=== PATIENT | female | born 1975 | race Caucasian/White ===

== ENCOUNTER 2019-08-04 07:35 | Outpatient (CLI) | payer BC, MEDICAID | END 2019-08-04 23:59 | disposition home or self-care (01) | LOC: ROC 07:35 | PROVIDERS: ATTEND Radiology Radiation Oncology | DX: C53.8 Malignant neoplasm of overlapping sites of cervix uteri (principal); R97.1 Elevated cancer antigen 125 [CA 125]; R10.2 Pelvic and perineal pain | CPT/HCPCS: 99214; G0463 ==

== ENCOUNTER 2019-09-19 08:30 | Emergency (ER) | payer BC, MEDICAID ==
[~2019-09-19] VITALS: Ht 167.6 cm; Wt 104.8 kg
--- NOTE | 2019-09-19 08:54 | NUR ---
BROU[facility], WHERE PT WAS SUPPOSED TO RECIEVE HER 4TH CHEMO TX. DEHISSED SURGICAL SITE ABOVE POWER PORT WITH NOTED YELLOW PUS DRAINING FROM SITE THIS AM. ALSO C/O ABDOMINAL TENDERNESS, "PAIN IN MY ANKLES THAT GOES ALL THE WAY UP MY LEGS." PT RECLINED IN BED, RESPIRATIONS EVEN AND UNLABORED ON RA. NAD NOTED AT THIS TIME. MOTHER AT BEDSIDE. AWAITING ERMD EVAL.
--- NOTE | 2019-09-19 09:56 | NUR ---
PLAN FOR IV START WITH CERTIFIED SUBSTANCE ABUSE COUNSELOR AT BEDSIDE TO ARRANGE SINGLE NEEDLE STICK. PT DID NOT TOLERATE IV START WELL, BUT DENIES PAIN WITH FLUSHING. HOB TO LEVEL OF COMFORT. RESPIRATIONS EVEN AND UNLABORED ON RA. MOTHER AT BEDSIDE.
[2019-09-19] MEDS ORDERED: SODIUM CHLORIDE FLUSH 10ML SYR IVF ONE (10:00)
[2019-09-19] MEDS ORDERED: SODIUM CHLORIDE 0.9% 1,000ML IVBOLUS ONE (10:00)
[2019-09-19 10:27] LABS: BASOPHILS % (AUTO) 0 % (0-1); EOSINOPHILS % (AUTO) 0 % (1-7); LYMPHOCYTES % (AUTO) 4 % (22-44); MD NO; MEAN CORPUSCULAR HEMOGLOBIN 26.6 pg (27.0-34.8); MEAN CORPUSCULAR HGB CONC 31.9 g/dL (32.4-35.8); MEAN CORPUSCULAR VOLUME 83.3 fL (80-100); MEAN PLATELET VOLUME 8.7 fL (7.4-10.4); MONOCYTES % (AUTO) 3 % (2-9); NEUTROPHILS # (AUTO) 9.26 x10^3/uL (1.8-6.8); NEUTROPHILS % (AUTO) 93 % (42-75); PLATELET COUNT 250 x10^3/uL (130-400); RED BLOOD COUNT 4.32 x10^6/uL (3.82-5.3); RED CELL DISTRIBUTION WIDTH 19.1 % (9.6-15.2)
[2019-09-19] MEDS ORDERED: NEOSPORIN OINT. PKT 1 PACKET ONE (10:27)
[2019-09-19 10:36] LABS: ALBUMIN 3.3 g/dL (3.4-5.0); ANION GAP 8 mmol/L (5-15); CALCIUM 8.6 mg/dL (8.5-10.1); CHLORIDE 105 mmol/L (98-107)
[2019-09-19 10:40] LABS: ALANINE AMINOTRANSFERASE 68 U/L (12-78); ALKALINE PHOSPHATASE 78 U/L (45-117); BILIRUBIN,TOTAL 0.2 mg/dL (0.2-1.0); CREATININE 1.28 mg/dL (0.55-1.02); TOTAL PROTEIN 6.6 g/dL (6.4-8.2)
--- NOTE | 2019-09-19 10:48 | NUR ---
PT RECLINED IN BED, IVF INFUSING WELL AT THIS TIME. NAD NOTED. WOUND CARE APPLIED TO OPEN SURGICAL WOUND. LIGHTS DIMMED FOR PT COMFORT. CALL LIGHT IN REACH. MOTHER REMAINS AT BEDSIDE.
--- NOTE | 2019-09-19 11:42 | NUR ---
IVF INFUSING SLOWLY. PER MD, PLAN TO DC AND WILL RECHECK FOLLOWING IVF COMPLETION.
[2019-09-19] MEDS ORDERED: HYDROcodone/APAP 5/325 TABLET ONE (12:03)
[2019-09-19] MEDS ORDERED: CEPHALEXIN 500 MG CAPSULE ONE (12:30)
[2019-09-19] MEDS ORDERED: HYDROcodone/APAP 5/325 TABLET PO ONE (12:30)
[2019-09-19] MEDS ORDERED: CEPHALEXIN 500 MG CAPSULE PO ONE (12:30)
--- NOTE | 2019-09-19 12:46 | NUR ---
DISCUSSION WITH MD REGARDING PT RECHECK, AWAITING DC ORDERS.
[2019-09-19 13:06] VITALS: BP 131/86
== END 2019-09-19 13:09 | disposition home or self-care (01) ==
LOC: ED 09:13
DX: R53.1 Weakness (principal); M79.10 Myalgia, unspecified site
CPT/HCPCS: 36415; 80053; 85025; 99283; J7030

== ENCOUNTER 2019-10-26 07:51 | Outpatient (CLI) | payer BC, MEDICAID | END 2019-10-26 23:59 | disposition home or self-care (01) | LOC: ROC 07:51 | PROVIDERS: ATTEND Radiology Radiation Oncology | DX: C53.9 Malignant neoplasm of cervix uteri, unspecified (principal) | CPT/HCPCS: 99212; G0463 ==